=== PATIENT | female | born 1985 | race Caucasian/White ===

== ENCOUNTER 2025-08-04 08:38 | Emergency (ER) | payer OTHER, SELFPAY ==
[2025-08-04 09:08] VITALS: BP 131/97; PULSE 65; RESP 17; TEMP 35.8; O2SAT 97; BMI 32.3
--- NOTE | 2025-08-04 11:42 | DI.RAD.S_ITS ---
PROCEDURE: XR KNEE RT 3V INDICATIONS: anterior right knee pain TECHNIQUE: 3 views of the knee were acquired. COMPARISON: None. FINDINGS AND IMPRESSION: On sunrise view, there is mild lateral tilt of the patella. No displaced fracture or dislocation otherwise. No significant joint effusion. If there is high concern for further derangement, consider MRI evaluation. Dictated by: Mykel Lopez M.D. on 08/04/2025 at 12:35 Approved by: Mykel Lopez M.D. on 08/04/2025 at 12:36
--- NOTE | 2025-08-04 11:50 | ED_ITS ---
HPI - Extremity Problem General Chief complaint: Extremity Problem,Nontraumatic Stated complaint: Right knee pain, 2 days ago L&I Time Seen by Provider: 08/04/25 11:36 Source: patient Mode of arrival: Family Vehicle History of Present Illness HPI Narrative: Ms. Olmos is a very pleasant 32-year-old female with a past medical history of COPD, hysterectomy who presents to the emergency department for any pain x2 days. Patient states that she injured in the about 25 years ago playing soccer but has been fine since then. 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 Now she has severe pain with most movements specifically pivoting movements and going up and down stairs. She describes the pain as on the anterior lateral side of the right knee. No deformities, open wounds, numbness tingling or weakness. She is having a difficult time ambulating. No meds prior to arrival. She is here with a family member. Related Data Previous Rx's ?Medication ?Instructions ?Recorded ketorolac 10 mg tablet 10 mg PO Q8H PRN pain 5 days #14 08/04/25 tabs methocarbamol 1,000 mg tablet 1,000 mg PO BEDTIME PRN muscle 08/04/25 spasm #10 tabs Allergies Allergy/AdvReac Type Severity Reaction Status Date / Time prochlorperazine (From AdvReac jittery Verified 08/04/25 09:07 Compazine) ziprasidone (From Geodon) AdvReac suicidal Verified 08/04/25 09:07 Review of Systems Review of Systems ROS Unobtainable: All systems reviewed & are unremarkable except as noted in HPI and below Patient History Social History Smoking Status: Current every day smoker Smoking Status: Current every day smoker tobacco type: cigarettes Exam Narrative Exam Narrative: GENERAL: 40 year old patient appears stated age. Well-developed patient, in no acute distress. HEAD: Atraumatic. Normocephalic. EYES: No scleral icterus. No injection or drainage. NECK: Trachea midline. Cervical ROM intact. CARDIOVASCULAR: Regular rate RESPIRATORY: ?Nonlabored respirations. ?Speaking in clear, full sentences. EXTREMITIES: RIGHT LEG: No deformity of right knee. Patient describes subjective pain on anterior lateral aspect. Patient has reproducible pain with external rotation of the foot/ankle. She is able to extend and flex the knee but with discomfort. Palpable DP and PT pulse. No calf swelling or tenderness. No color change of the leg. No gross reproducible laxity. No focal bony tenderness. NEURO: AOx3. ?Clear speech. SKIN: No rash or erythema of visible areas Initial Vital Signs Initial Vital Signs: Vital Signs Temperature 96.4 F L 08/04/25 09:08 Pulse Rate 65 08/04/25 09:08 Respiratory Rate 17 08/04/25 09:08 Blood Pressure 131/97 H 08/04/25 09:08 Pulse Oximetry 97 08/04/25 09:08 Oxygen Delivery Method Room Air 08/04/25 09:08 Course Orders Ordered: ED Orders 08/04/25 11:42 XR knee RT 3V Stat Discontinued Medications Ketorolac Tromethamine (Ketorolac 30 Mg/Ml Vial) 30 mg IM NOW ONE Stop: 08/04/25 11:54 Last Admin: 08/04/25 12:54 Dose: 30 mg Documented By: SANDRA Vital Signs Vital signs: Vital Signs - 8 hr 08/04/25 13:03 Pulse Rate 62 Respiratory Rate 16 Blood Pressure 144/90 H Pulse Oximetry 98 Oxygen Delivery Method Room Air MDM - Extremity (Nontraumatic) Medical Records Medical records narrative: None Imaging Data XR Right Knee: Radiologist's Impression: PROCEDURE: XR KNEE RT 3V INDICATIONS: anterior right knee pain TECHNIQUE: 3 views of the knee were acquired. COMPARISON: None. FINDINGS AND IMPRESSION: On sunrise view, there is mild lateral tilt of the patella. No displaced fracture or dislocation otherwise. No significant joint effusion. If there is high concern for further derangement, consider MRI evaluation. Dictated by: Mykel Lopez M.D. on 08/04/2025 at 12:35 Approved by: Mykel Lopez M.D. on 08/04/2025 at 12:36 MDM Narrative Medical decision making narrative: 32-year-old female with a past medical history of COPD, hysterectomy who presents to the emergency department for any pain x2 days. Differential diagnosis includes but isn't limited to right knee strain, sprain, tendinitis, overuse injury, fracture, etc. On exam patient is in no acute distress, nontoxic appearing, vital signs appropriate. She does have pain on the anterolateral aspect of the knee with range of motion, no gross deformities and she is neurovascularly intact. We will obtain x-ray right knee given acute pain and treat with IM Toradol. Patient's x-ray reveals mild lateral tilt of the patella. No displaced fractures or dislocations. Patient was placed into a right knee immobilizer for suspected soft tissue injury resulting in lateral tilt of the patella. She is provided with crutches. Discussed ortho follow up, rice therapy, ibuprofen and acetaminophen. Patient verbalized understanding of all information agreeable with the plan. She is stable and ambulatory for discharge home. Discharge Plan Departure Patient Disposition: Home Clinical Impression: Knee sprain Qualifiers: Encounter type: initial encounter Involved ligament of knee: unspecified ligament Laterality: right Qualified Code(s): S83.91XA - Sprain of unspecified site of right knee, initial encounter Instructions: DI for Knee Pain Activity Restrictions/Additional Instructions: Dear Ms. Olmos, Thank you for coming to the emergency department. Today you were evaluated for right knee pain. You have been prescribed a strong anti-inflammatory pain medication. Do not take this with other anti-inflammatory medication such as ibuprofen, Advil, Motrin, naproxen, etc. You have also been prescribed muscle relaxer. This will make you drowsy. Please take this at night if needed to help with sleep/spasms. Do not drive or operate heavy machinery or drink alcohol with this medication. Please use RICE therapy for your pain in addition to acetaminophen. Rest the painful area. Ice the area of pain/swelling for at least 15 minutes, 4x a day. Compress the area of swelling using a brace, wrap, or splint if applied. Elevate the painful or swollen extremity by supporting it above the level of the heart with pillows when sitting or laying. Please continue to use the crutches only as needed. Use the knee immobilizer whenever walking. Please follow up with orthopedics. Please follow up with your primary care doctor within the next 2-3 days for ER follow-up. (If you do not have a PCP you can call [phone]. ?to schedule an appointment with an [facility] Primary Care Provider) IF YOU DEVELOP ANY NEW OR WORSENING SYMPTOMS, RETURN TO THE ER! Please read the attached instructions, they highlight more specific treatments and interventions for you at home. Thank you for letting me participate in your care, Meghann Muiñz PA-C Prescriptions: New ketorolac 10 mg tablet 10 mg PO Q8H PRN (Reason: pain) 5 Days Qty: 14 0RF Rx Instructions: Take with food. methocarbamol 1,000 mg tablet 1,000 mg PO BEDTIME PRN (Reason: muscle spasm) Qty: 10 0RF Referrals: Zeinab Zurita DO [Physician, Orthopedic Surgery] Referral Note: Right Knee injury Stand Alone Forms: Patient Portal/API, Work Release Note
[2025-08-04] MEDS: KETOROLAC 30 MG/ML VIAL IM (12:54)
[2025-08-04 13:03] VITALS: BP 144/90; PULSE 62; RESP 16; O2SAT 98
--- NOTE | 2025-08-04 13:03 | PC.NURSE ---
Patient evaluated, treated, and discharged by provider prior to nursing assessment.
== END 2025-08-04 13:04 | disposition home or self-care (01) ==
PROVIDERS: Emergency Provider Physician Assistant
DX: S83.8X1A Sprain of other specified parts of right knee, initial encounter (principal); M25.561 Pain in right knee; Y93.66 Activity, soccer
CPT/HCPCS: 73562; 96372; 99283; J1885